=== PATIENT | male | born 1975 | race Caucasian/White ===

== ENCOUNTER 2019-06-18 08:55 | Emergency (ER) | payer SELFPAY ==
[~2019-06-18] VITALS: Ht 182.9 cm; Wt 96.3 kg
[2019-06-18 09:26] LABS: BILIRUBIN,URINE NEGATIVE (NEG); CLARITY,URINE CLEAR; COLOR,URINE YELLOW; NITRITE,URINE NEGATIVE (NEG); PH,URINE 5.5; PROTEIN,URINE NEGATIVE (NEG-TRACE); UROBILINOGEN,URINE 0.2 mg/dL (0.2 mg/dL)
[2019-06-18 09:27] LABS: BASO % 1 % (0-3); EOS # 0.3 x10^3/uL (0.0-0.7); EOS % 4 % (0-3); HEMATOCRIT 42.8 % (39.0-53.0); HEMOGLOBIN 14.6 g/dL (13.0-17.5); LYMPH # 2.7 x10^3/uL (1.0-4.8); LYMPH % 36 % (24-48); MEAN CORPUSCULAR HEMOGLOBIN 31 pg (25-35); MEAN CORPUSCULAR HGB CONC 34 g/dL (31-37); MEAN CORPUSCULAR VOLUME 91 fL (79-100); MONO # 0.7 x10^3/uL (0.0-1.1); MONO % 9 % (0-9); NEUT # 3.9 x10^3/uL (1.8-7.7); NEUT % 51 % (31-73); PLATELET COUNT 191 x10^3/uL (140-400); RED BLOOD COUNT 4.71 x10^6/uL (4.30-5.70); WHITE BLOOD COUNT 7.6 x10^3/uL (4.0-11.0)
[2019-06-18 09:52] LABS: ALBUMIN 4.1 g/dL (3.4-5.0); ALBUMIN/GLOBULIN RATIO 1.1 (1.0-1.7); CALCIUM 9.1 mg/dL (8.5-10.1); GFR 81.9; TOTAL BILIRUBIN 0.4 mg/dL (0.2-1.0); TOTAL PROTEIN 7.7 g/dL (6.4-8.2)
[2019-06-18] MEDS: IV NORMAL SALINE 1000ML BAG 1,000 ML IV ONE (10:02)
[2019-06-18] MEDS: AZITHROMYCIN 250 MG TABLET. PO ONE (10:03)
[2019-06-18] MEDS: KETOROLAC 15 MG/ML VIAL. IV ONE (10:03)
[2019-06-18] MEDS: cefTRIAXone IM 250 MG VIAL IM ONE (10:07)
--- NOTE | 2019-06-18 10:17 | RAD ---
Examination: RENAL COMPLETE LEFT History: Left flank pain Comparison/Correlation: None Findings: Left renal ultrasound exam was performed. Left kidney measures 13.1 cm x 5.5 cm x 5.7 segment. Left renal contour and echotexture are normal. Left renal cortical thickness is normal. No left hydronephrosis. No left pneumothorax. Urinary bladder is unremarkable with left ureteral and right ureteral jets seen. Impression: Normal left renal ultrasound exam. Electronically signed by: Niraj Ryan MD (06/18/2019 10:15 AM) [id number]
[2019-06-18 10:19] LABS: BACTERIA,URINE 0 /HPF (0-FEW); RBC,URINE >40 /HPF (0-2); SQUAMOUS EPITHELIAL CELL,UR OCC /LPF; WBC,URINE 0 /HPF (0-4)
--- NOTE | 2019-06-18 10:20 | RAD ---
Examination: TESTICULAR/SCROTUM History: Bilateral testicular pain and swelling Comparison/Correlation: None Findings: Testicular ultrasound exam was performed. Right testicle measures 5.4 cm x 3.2 cm x 2.4 cm and left testicle measures approximately 3 cm x 2.4 cm. Normal testicular echotexture. Normal color Doppler and spectral flow evident bilaterally. Epididymides normal flow is evident on color Doppler imaging of the epididymides. No suspicious epididymal mass. No definite varicoceles. No hydronephrosis. Impression: Normal scrotal ultrasound exam. Electronically signed by: Niraj Ryan MD (06/18/2019 10:17 AM) [id number]
--- NOTE | 2019-06-18 10:59 | PHYS DOC ---
Past Medical History Past Medical History: No Pertinent History Past Surgical History: Other Additional Past Surgical Histo: R HAND Smoking Status: Current Every Day Smoker Alcohol Use: None Adult General Chief Complaint Chief Complaint: FLANK PAIN HPI HPI Patient is a 43 year old male who presents to the emergency department with complaints of left flank pain for the last 2 weeks. He states that the pain has been intermittent wraps around to his lower left quadrant. He states that the pain occurs with urination and movement. He also states that he has had tingling sensation after urination and blood in his urine recently. He denies any abnormal penile discharge, fever, cough, shortness of breath, wheezing, diarrhea, constipation, or incontinence. Patient states that he recently got out of [facility]. He currently denies any pain. He states that the pain is only after he urinates. Review of Systems Review of Systems All other ROS is negative unless otherwise noted in HPI. Current Medications Current Medications Current Medications Medications (Trade) Dose Ordered Sig/Krystal Start Time Stop Time Status Last Admin Dose Admin Azithromycin (Zithromax) 1,000 mg 1X ONCE 06/18/19 09:30 06/18/19 09:32 DC 06/18/19 10:03 1,000 MG Ceftriaxone Sodium (Rocephin Im) 250 mg 1X ONCE 06/18/19 09:30 06/18/19 09:32 DC 06/18/19 10:07 250 MG Ketorolac Tromethamine (Toradol 15mg Vial) 15 mg 1X ONCE 06/18/19 09:30 06/18/19 09:32 DC 06/18/19 10:03 15 MG Potassium Chloride (Klor-Con) 40 meq 1X ONCE 06/18/19 12:00 06/18/19 12:01 DC 06/18/19 13:15 40 MEQ Sodium Chloride 1,000 ml @ 1,000 mls/hr 1X ONCE 06/18/19 09:30 06/18/19 10:29 DC 06/18/19 10:02 1,000 MLS/HR Allergies Allergies Allergies Coded Allergies Type Severity Reaction Last Updated Verified No Known Drug Allergies 06/18/19 No Physical Exam Physical Exam See Above Constitutional: Well developed, well nourished, no acute distress, non-toxic appearance. [] HENT: Normocephalic, atraumatic, bilateral external ears normal, oropharynx moist, no oral exudates, nose normal. [] Eyes: PERRLA, EOMI, conjunctiva normal, no discharge. [] Neck: Normal range of motion, no stridor. [] Cardiovascular:Heart rate regular rhythm, no murmur [] Lungs & Thorax: Bilateral breath sounds clear to auscultation [] Abdomen: soft, no tenderness Male : Bilateral testicles are tender to palpation without erythema or warmth, there is an area of linear erythema noted to the base of the penis, no scabbing, no bleeding; urethra appears normal, Starr RN at the bedside during exam Skin: Warm, dry, no erythema, no rash. [] Back: No CVA tenderness. Extremities: No cyanosis, ROM intact, Neurologic: Alert and oriented X 3, no focal deficits noted. [] Psychologic: Affect normal, judgement normal, mood normal. [] Current Patient Data Vital Signs Vital Signs Date Time Temp Pulse Resp B/P (MAP) Pulse Ox O2 Delivery O2 Flow Rate FiO2 06/18/19 13:17 87 124/86 (99) 98 Room Air 06/18/19 09:06 98.6 16 98.6 Lab Values Laboratory Tests Test 06/18/19 09:02 White Blood Count 7.6 x10^3/uL (4.0-11.0) Red Blood Count 4.71 x10^6/uL (4.30-5.70) Hemoglobin 14.6 g/dL (13.0-17.5) Hematocrit 42.8 % (39.0-53.0) Mean Corpuscular Volume 91 fL (79-100) Mean Corpuscular Hemoglobin 31 pg (25-35) Mean Corpuscular Hemoglobin Concent 34 g/dL (31-37) Red Cell Distribution Width 13.0 % (11.5-14.5) Platelet Count 191 x10^3/uL (140-400) Neutrophils (%) (Auto) 51 % (31-73) Lymphocytes (%) (Auto) 36 % (24-48) Monocytes (%) (Auto) 9 % (0-9) Eosinophils (%) (Auto) 4 % (0-3) H Basophils (%) (Auto) 1 % (0-3) Neutrophils # (Auto) 3.9 x10^3/uL (1.8-7.7) Lymphocytes # (Auto) 2.7 x10^3/uL (1.0-4.8) Monocytes # (Auto) 0.7 x10^3/uL (0.0-1.1) Eosinophils # (Auto) 0.3 x10^3/uL (0.0-0.7) Basophils # (Auto) 0.0 x10^3/uL (0.0-0.2) Urine Collection Type Void Urine Color Yellow Urine Clarity Clear Urine pH 5.5 Urine Specific Lacey 1.010 Urine Protein Negative mg/dL (NEG-TRACE) Urine Glucose (UA) Negative mg/dL (NEG) Urine Ketones (Stick) Negative mg/dL (NEG) Urine Blood Large (NEG) Urine Nitrite Negative (NEG) Urine Bilirubin Negative (NEG) Urine Urobilinogen Dipstick 0.2 mg/dL (0.2 mg/dL) Urine Leukocyte Esterase Negative (NEG) Urine RBC >40 /HPF (0-2) Urine WBC 0 /HPF (0-4) Urine Squamous Epithelial Cells Occ /LPF Urine Bacteria 0 /HPF (0-FEW) Urine Mucus Slight /LPF Sodium Level 142 mmol/L (136-145) Potassium Level 3.0 mmol/L (3.5-5.1) L Chloride Level 104 mmol/L (98-107) Carbon Dioxide Level 29 mmol/L (21-32) Anion Gap 9 (6-14) Blood Urea Nitrogen 11 mg/dL (8-26) Creatinine 1.0 mg/dL (0.7-1.3) Estimated GFR (Cockcroft-Gault) 81.9 BUN/Creatinine Ratio 11 (6-20) Glucose Level 91 mg/dL (70-99) Calcium Level 9.1 mg/dL (8.5-10.1) Total Bilirubin 0.4 mg/dL (0.2-1.0) Aspartate Amino Transferase (AST) 28 U/L (15-37) Alanine Aminotransferase (ALT) 30 U/L (16-63) Alkaline Phosphatase 82 U/L (46-116) Total Protein 7.7 g/dL (6.4-8.2) Albumin 4.1 g/dL (3.4-5.0) Albumin/Globulin Ratio 1.1 (1.0-1.7) Laboratory Tests 06/18/19 09:02 Laboratory Tests 06/18/19 09:02 EKG EKG [] Radiology/Procedures Radiology/Procedures PROCEDURE: TESTICULAR/SCROTUM Examination: TESTICULAR/SCROTUM History: Bilateral testicular pain and swelling Comparison/Correlation: None Findings: Testicular ultrasound exam was performed. Right testicle measures 5.4 cm x 3.2 cm x 2.4 cm and left testicle measures approximately 3 cm x 2.4 cm. Normal testicular echotexture. Normal color Doppler and spectral flow evident bilaterally. Epididymides normal flow is evident on color Doppler imaging of the epididymides. No suspicious epididymal mass. No definite varicoceles. No hydronephrosis. Impression: Normal scrotal ultrasound exam.[] PROCEDURE: RENAL COMPLETE LEFT Examination: RENAL COMPLETE LEFT History: Left flank pain Comparison/Correlation: None Findings: Left renal ultrasound exam was performed. Left kidney measures 13.1 cm x 5.5 cm x 5.7 segment. Left renal contour and echotexture are normal. Left renal cortical thickness is normal. No left hydronephrosis. No left pneumothorax. Urinary bladder is unremarkable with left ureteral and right ureteral jets seen. Impression: Normal left renal ultrasound exam. PROCEDURE: CT ABDOMEN PELVIS WO CONTRAST Examination: CT of the abdomen pelvis without contrast HISTORY: History of left flank pain, hematuria COMPARISON: None available TECHNIQUE: Axial CT images of the abdomen pelvis were performed without contrast. Coronal and sagittal reformats are performed Exposure: One or more of the following individualized dose reduction techniques were utilized for this examination: 1. Automated exposure control 2. Adjustment of the mA and/or kV according to patient size 3. Use of iterative reconstruction technique FINDINGS: The bibasilar lungs are clear. No evidence of free air identified in the abdomen. The evaluation of the solid organs is limited due to lack of IV contrast. The evaluation of bowel is limited due to lack of oral contrast. The noncontrasted liver, spleen, adrenals grossly appears unremarkable. Gallbladder is mildly distended. The stomach is mildly distended with visualized pancreas grossly appears unremarkable. The small bowel is nondilated. Feces and gas noted in the colon. Appendix is normal. No evidence of intrarenal collecting system calculi or hydronephrosis identified. Mild degenerative changes lumbar spine. IMPRESSION: 1. No evidence of intrarenal collecting system calculi or hydronephrosis. Course & Med Decision Making Course & Med Decision Making Pertinent Labs and Imaging studies reviewed. (See chart for details) Patient is a 43-year-old male who presented to the emergency department with reports of left flank pain and pain after urination for the last 2 weeks. CBC and CMP were unremarkable, UA was concerning for greater than 40 blood, an ultrasound of the testicles and lower left quadrant revealed no acute findings, CT abdomen and pelvis was negative for any acute abnormalities. Most likely the patient has a sexually transmitted infection.P atient was treated prophylactically with 250 mg of IM Rocephin, and 1 g of PO Zithromax. Patient was instructed to avoid having intercourse until the results of gonorrhea and chlamydia testing are available, patient was notified that these results would not be available for 48 hours. If one or both of these tests is positive, patient needs to refrain from intercourse for approximately 1 week following the treatment of any current partners. Encouraged patient to go to the local health department for complete testing for sexually transmitted infections. Follow up with his primary care doctor symptoms persist, return to the ER if symptoms worsen. Patient verbalized an understanding of home care, medications, follow-up, and return to ED instructions and was in agreement with the plan of care. [] Dragon Disclaimer Dragon Disclaimer This electronic medical record was generated, in whole or in part, using a voice recognition dictation system. Departure Departure Impression: Primary Impression: Dysuria Additional Impressions: Hematuria Contact with and (suspected) exposure to infections with a predominantly sexual mode of transmission Disposition: 01 HOME, SELF-CARE Condition: STABLE Referrals: NO PCP (PCP) Patient Instructions: Dysuria-Brief, Hematuria, Adult, Sexually Transmitted Disease, [id number] Additional Instructions: Recommend that you go to your local health department for comprehensive sexually transmitted disease testing. You have been treated for a suspected gonorrhea and chlamydia. Avoid having intercourse until the results of gonorrhea and chlamydia testing are available, these results will not be available for 48 hours. If one or both of these tests is positive, you need to refrain from intercourse for approximately 1 week following the treatment of any current partners. Follow-up with your primary care doctor for reevaluation in one week, return to ER if symptoms worsen. Problem Qualifiers Additional Impressions: Hematuria Hematuria type: unspecified type Qualified Codes: R31.9 - Hematuria, unspecified SAUL MARQUEZ APRN Jun 18, 2019 10:59
--- NOTE | 2019-06-18 11:38 | RAD ---
Examination: CT of the abdomen pelvis without contrast HISTORY: History of left flank pain, hematuria COMPARISON: None available TECHNIQUE: Axial CT images of the abdomen pelvis were performed without contrast. Coronal and sagittal reformats are performed Exposure: One or more of the following individualized dose reduction techniques were utilized for this examination: 1. Automated exposure control 2. Adjustment of the mA and/or kV according to patient size 3. Use of iterative reconstruction technique FINDINGS: The bibasilar lungs are clear. No evidence of free air identified in the abdomen. The evaluation of the solid organs is limited due to lack of IV contrast. The evaluation of bowel is limited due to lack of oral contrast. The noncontrasted liver, spleen, adrenals grossly appears unremarkable. Gallbladder is mildly distended. The stomach is mildly distended with visualized pancreas grossly appears unremarkable. The small bowel is nondilated. Feces and gas noted in the colon. Appendix is normal. No evidence of intrarenal collecting system calculi or hydronephrosis identified. Mild degenerative changes lumbar spine. IMPRESSION: 1. No evidence of intrarenal collecting system calculi or hydronephrosis. Electronically signed by: Kali Mahoney MD (06/18/2019 11:35 AM) [facility] [place]
[2019-06-18] MEDS: POTASSIUM CHLORIDE 20 MEQ TABLET.ER. PO ONE (13:15)
[2019-06-18 13:17] VITALS: BP 124/86
== END 2019-06-18 13:21 | disposition home or self-care (01) ==
LOC: ER 08:55
DX: R30.0 Dysuria (principal); R31.9 Hematuria, unspecified; R10.32 Left lower quadrant pain; L53.9 Erythematous condition, unspecified; F17.200 Nicotine dependence, unspecified, uncomplicated; Z98.890 Other specified postprocedural states; Z79.899 Other long term (current) drug therapy; Z20.2 Contact with and (suspected) exposure to infections with a predominantly sexual mode of transmission
CPT/HCPCS: 36415; 74176; 76775; 76870; 80053; 81001; 85025; 87491; 87591; 96372; 96374; 99285; J0696; J1885; J7030; Q0144